=== PATIENT | male | born 1990 | race Caucasian/White ===

== ENCOUNTER 2021-11-15 14:33 | Emergency (ER) | payer BC ==
[2021-11-15 14:39] VITALS: BP 169/93; PULSE 97; RESP 18; TEMP 98.8
--- NOTE | 2021-11-15 15:10 | ED ---
General Adult HPI - General Chief complaint: Skin/Abscess/Foreign Body Stated complaint: Facial lac Time Seen by Provider: 11/15/21 14:37 Source: patient, RN notes reviewed Mode of arrival: ambulatory Limitations: no limitations - History of Present Illness Initial comments: 31-year-old male presents emergency Department chief complaint of left periorbit al laceration. Patient states that he tripped and was wall is glasses caused laceration approximately 14 hours ago. Patient states his tetanus is up-to-date and he has mild bruising but has no pain no headache no dizziness. Patient has no visual disturbance. Patient offers no complaints. - Related Data Allergies Allergy/AdvReac Type Severity Reaction Status Date / Time No Known Allergies Allergy Verified 11/15/21 14:39 Review of Systems ROS Statement: Those systems with pertinent positive or pertinent negative responses have been documented in the HPI. ROS Other: All systems not noted in ROS Statement are negative. Past Medical History Past Medical History: No Reported History History of Any Multi-Drug Resistant Organisms: None Reported Past Surgical History: No Surgical Hx Reported Smoking Status: Never smoker Past Alcohol Use History: None Reported Past Drug Use History: None Reported General Exam Limitations: no limitations General appearance: alert, in no apparent distress Head exam: Present: atraumatic, normocephalic, normal inspection Eye exam: Present: normal appearance, PERRL, EOMI, periorbital swelling (Mild left with periorbital ecchymosis, triangle shaped skin avulsion, retracted skin laceration.). Absent: scleral icterus, conjunctival injection, periorbital tenderness ENT exam: Present: normal exam, normal oropharynx, mucous membranes moist Neck exam: Present: normal inspection, full ROM. Absent: tenderness, meningismus, lymphadenopathy Respiratory exam: Present: normal lung sounds bilaterally. Absent: respiratory distress, wheezes, rales, rhonchi, stridor Cardiovascular Exam: Present: regular rate, normal rhythm, normal heart sounds. Absent: systolic murmur, diastolic murmur, rubs, gallop, clicks Course Vital Signs 11/15/21 14:34 Temperature 98.8 F Pulse Rate 97 Respiratory 18 Rate Blood Pressure 169/93 O2 Sat by Pulse 97 Oximetry Medical Decision Making - Medical Decision Making 31-year-old presented for laceration. This wound is actually 14 hours old the skin is retracted and patient has near avulsion of the skin. I did recommend patient to be discharged and oral antibiotics with secondary closure. Disposition Clinical Impression: Facial laceration, Periorbital ecchymosis of left eye Disposition: HOME SELF-CARE Condition: Stable Instructions (If sedation given, give patient instructions): Facial Laceration (ED) Additional Instructions: Please return to the Emergency Department if symptoms worsen or any other concerns. Is patient prescribed a controlled substance at d/c from ED?: No Referrals: Nonstaff,Physician [Primary Care Provider] - 1-2 days Time of Disposition: 15:13
== END 2021-11-15 15:26 | disposition home or self-care (01) ==
LOC: EC 14:33 → SUPCPDRO 14:33 → EC 15:26
DX: S01.112A Laceration without foreign body of left eyelid and periocular area, initial encounter (principal); W01.198A Fall on same level from slipping, tripping and stumbling with subsequent striking against other object, initial encounter
CPT/HCPCS: 99282